=== PATIENT | male | born 1970 | race Caucasian/White ===

== ENCOUNTER → 2019-03-10 | Day surgery (SDC) | payer BC ==
[~2019-03-10] MED LIST: ASPIRIN81 MG; CRESTOR10 MG; FARXIGA; FENTANYL CITRATE/PF 100MCG/2 ML INJ ONE; INSULIN PUMP; LISINOPRIL2.5 MG PO; MIDAZOLAM HCL 2 MG/2 ML VIAL ONE; OR PHACO EYE KIT ONE; PREOP PHACO EYE KIT ONE; TOBRAMYCIN/DEXAMETHASONE(OPTH) 3.5 GM TUBE ONE
[2019-03-10 13:25] VITALS: BP 126/75
== END | disposition home or self-care (01) ==
LOC: OR 09:31
PROVIDERS: ATTEND Ophthalmology
DX: H25.11 Age-related nuclear cataract, right eye (principal); E11.9 Type 2 diabetes mellitus without complications; I10 Essential (primary) hypertension; Z79.82 Long term (current) use of aspirin; Z79.4 Long term (current) use of insulin; E78.5 Hyperlipidemia, unspecified
CPT/HCPCS: 36415; 66984; 82948; J2250; J3010; V2632